=== PATIENT | male | born 1950 | race American Indian/Alaskan Native ===

== ENCOUNTER 2017-06-10 05:47 | Day surgery (SDC) | payer MEDICARE, OTHER ==
[2017-06-10 06:31] LABS: Basophils % (Auto) 0.9 % (0.0-1.8); Hematocrit 38.6 % (35.5-45.6); Hemoglobin 13.2 gm/dl (11.8-15.2); Mean Corpuscular HGB Conc 34 % (32-34); Mean Corpuscular Hemoglobin 31 pg (28-32); Mean Corpuscular Volume 91 fl (84-94); Platelet Count 247 K/mm3 (140-440); Red Blood Count 4.23 M/mm3 (3.65-5.03); Red Cell Distribution Width 14.1 % (13.2-15.2); White Blood Count 7.8 K/mm3 (4.5-11.0)
[2017-06-10 06:40] LABS: Anion Gap 14 mmol/L; BUN/Creatinine Ratio 18; Blood Urea Nitrogen 14 mg/dL (9-20); Carbon Dioxide 28 mmol/L (22-30); Chloride 103.9 mmol/L (98-107); Glucose 95 mg/dL (75-100); Sodium 142 mmol/L (137-145)
[2017-06-10 06:42] LABS: INR 0.95 (0.87-1.13)
[2017-06-10 06:43] LABS: Partial Thromboplastin Time 25.7 Sec. (24.2-36.6)
[2017-06-10] MEDS ORDERED: NACL 0.9% 500 ML 500 ML IV SCH (07:00)
[2017-06-10] MEDS ORDERED: CALAN ONE (08:00)
[2017-06-10] MEDS ORDERED: HEPARIN/NS 5000 UNIT/500ML(CATH LAB) 1,000 ML IR ONE (08:00)
[2017-06-10] MEDS ORDERED: HEPARIN 10,000 UNITS/10 ML ONE (08:00)
[2017-06-10] MEDS ORDERED: NITROGLYCERIN SYRINGE 3 ML ONE (08:00)
[2017-06-10] MEDS ORDERED: XYLOCAINE 2% INFILTRATI ONE (08:00)
[2017-06-10] MEDS ORDERED: VERSED ONE (08:01)
[2017-06-10] MEDS ORDERED: SUBLIMAZE ONE (08:01)
--- NOTE | 2017-06-10 08:40 | Short Stay Summary ---
Short Stay Documentation Date of service: 06/10/17 - History H&P: obtained from office - Allergies and Medications Current Medications: Allergies Sulfa (Sulfonamide Antibiotics) Allergy (Verified 06/10/17 06:49) Hives Home Medications Medication Instructions Recorded Confirmed Last Taken Type Ascorbic Acid [Vitamin C] 1,000 mg PO DAILY 06/10/17 06/10/17 06/09/17 History Aspirin [Adult Low Dose Aspirin EC] 81 mg PO DAILY 06/10/17 06/10/17 06/10/17 05 :00 History Bicalutamide [Casodex] 50 mg PO DAILY 06/10/17 06/10/17 06/10/17 05:00 History Cholecalciferol Vit D3 [Vitamin D3] 1,000 unit PO QDAY 06/10/17 06/10/17 History Cyanocobalamin/Folic Acid [Vitamin 1 each PO DAILY 06/10/17 06/10/17 06/09/17 History F29-Xskre Acid Tablet] Magnesium 1 tab PO DAILY 06/10/17 06/10/17 06/09/17 History Active Medications Sodium Chloride (Nacl 0.9% 500 Ml) 500 mls @ 50 mls/hr IV DIRECT JAMI Stop: 06/10/17 16:59 Last Admin: 06/10/17 06:30 Dose: 50 mls/hr - Brief post op/procedure progress note Date of procedure: 06/10/17 Pre-op diagnosis: Cad Post-op diagnosis: other (non ischemic cardiomyopathy) - Hospital course Hospital course: Uneventful post cardiac cath - Disposition Condition at discharge: Fair - Discharge Diagnoses (1) Cardiomyopathy Status: Acute Qualifiers: Cardiomyopathy type: unspecified Qualified Code(s): I42.9 - Cardiomyopathy , unspecified Short Stay Discharge Plan Activity: advance as tolerated Diet: low fat, low cholesterol, low salt Wound: keep clean and dry Follow up with: DEMETRIS ALVARADO JR, MD [Primary Care Provider] - 7 Days
[2017-06-10] MEDS ORDERED: NACL 0.45% 1000 ML 1,000 ML IV SCH (09:00)
[2017-06-10 11:05] VITALS: BP 118/71
--- NOTE | 2017-06-10 11:35 | Cardiac Catherization Report ---
PROCEDURE PERFORMED: 1. Selective left and right coronary angiogram. 2. Left ventriculogram. IT COORDINATOR: Jovanny Roldan MD REFERRING PHYSICIAN: Pao Ferreira MD SEDATION: Moderate sedation. SPECIMENS REMOVED: None. PREOPERATIVE DIAGNOSIS: Chest pain. POSTOPERATIVE DIAGNOSES: Noncardiac chest pain, mild nonischemic cardiomyopathy. PROCEDURE IN DETAIL: 1. The patient was prepped and draped in a sterile fashion after informed consent. 2. The right groin was anesthetized using local Lidocaine infiltration. 3. The right femoral artery was entered using the Seldinger technique, followed by the placement of a 6-[place] sheath. 4. Selective left and right coronary angiography was performed using 6-[place] Madina catheters. Angiograms were done in multiple projections. 5. Selective left ventricular angiography was done using a 6-[place] pigtail catheter. Left ventricular angiography was performed in the right anterior oblique projection. 6. The catheters were withdrawn, the sheath removed, and hemostasis was achieved. 7. The patient was transferred to the post cardiac catheterization unit in stable condition. There were no complications, equipment malfunction, or technical difficulties. The sheath was removed manually and TR band applied. . FINDINGS: HEMODYNAMICS: AO 106/81, LV 112/16, LVEDP was 16. No significant gradient across the aortic valve. Left ventriculogram done in 30-degree MUÑIZ projection shows mildly reduced LV systolic function, EF around 45%. ANGIOGRAM DETAILS: 1. Left main is angiographically normal. 2. LAD is a medium caliber vessel. The distal LAD bifurcates and the superior ____ around the apex in an atypical manner. The inferior branch stops short of the apex. 3. The circumflex is a medium caliber vessel and appears angiographically normal. 4. The RCA is again a medium caliber dominant vessel with no significant stenosis. IMPRESSION: 1. Essentially normal coronary arteries. 2. Mild nonischemic cardiomyopathy, EF 45%. PLAN: 1. Aggressive risk factor modification. 2. Medical management of cardiomyopathy. 3. Evaluate for other causes of noncardiac chest pain. 4. Routine radial artery sheath care. JOB# [id number] RR/NTS
== END 2017-06-10 10:45 | disposition home or self-care (01) ==
LOC: CATHLABREC 05:47
PROVIDERS: ATTEND Internal Medicine Cardiovascular Disease
DX: I42.8 Other cardiomyopathies (principal); C61 Malignant neoplasm of prostate; H40.9 Unspecified glaucoma; Z88.2 Allergy status to sulfonamides; Z79.82 Long term (current) use of aspirin; Z79.899 Other long term (current) drug therapy
CPT/HCPCS: 36415; 80048; 85025; 85610; 85730; 93005; 93010; 93458; C1894; J1644; J2250; J3010; J7040; Q9967